=== PATIENT | male | born 1940 | race African-American/Black ===

== ENCOUNTER 2020-06-06 19:39 | Inpatient (IN) | payer OTHER ==
[2020-06-06 21:28] LABS: Basophils % 0.5 % (0-1.3); Hematocrit 32.1 % (39.6-49.0); Lymphocytes % 14.7 % (15.3-44.8); MPV 7.6 fL (7.6-11.3); RBC Red Blood Cell Count 3.34 M/uL (4.33-5.43)
[2020-06-06 21:35] LABS: Protime INR 1.28
[2020-06-06 21:51] LABS: ALT/SGPT 44 U/L (12-78); AST/SGOT 40 U/L (15-37); Albumin 3.2 g/dL (3.4-5.0); Alkaline Phosphatase 69 U/L (45-117); BUN Blood Urea Nitrogen 38 mg/dL (7-18); Bicarbonate 26 mmol/L (21-32); Bilirubin Direct < 0.1 mg/dL (0-0.2); Bilirubin Total 0.2 mg/dL (0.2-1.0); Glucose Level 165 mg/dL (74-106); Magnesium 2.1 mg/dL (1.8-2.4); NT PRO-BNP 77 pg/mL (<450); Potassium 4.7 mmol/L (3.5-5.1); Protein, Total 7.4 g/dL (6.4-8.2); Sodium Level 140 mmol/L (136-145); Troponin (Emerg Dept Use Only) < 0.02 ng/mL (0.0-0.045)
--- NOTE | 2020-06-06 23:58 | EDPHYS ---
Physician Documentation [facility] Name: Patrice Kathleen Age: 80 yrs Sex: Male : 1940 Arrival Date: 06/06/2020 Time: 19:48 Bed 18 Private MD: ED Physician Donell Calhoun HPI: 06/06 22:00 This 80 yrs old Black Male presents to ER via Ambulatory with complaints of Leg mh7 Swelling. 22:00 The patient presents with swelling. The complaints affect the right leg and left leg. mh7 Context: The problem was sustained at an unknown site, resulted from an unknown cause, the patient can fully bear weight, the patient is able to ambulate, without difficulty, Problem is a result from a previous injury: No. Onset: The symptoms/episode began/occurred 3 week(s) ago, and became worse 1 week(s) ago. Modifying factors: The symptoms are alleviated by nothing. the symptoms are aggravated by nothing. Associated signs and symptoms: Pertinent positives: swelling, Pertinent negatives calf tenderness, fever, nausea, numbness, rash, tingling, vomiting, warmth, weakness. Treatment prior to arrival includes: no previous treatment. Severity of symptoms: At their worst the symptoms were moderate, 7 day(s) ago, in the emergency department the symptoms are unchanged. Historical: - Allergies: 20:14 No Known Allergies; ca1 - PMHx: 20:14 Diabetes - IDDM; Hypertension; Hyperlipidemia; ca1 - PSHx: 20:14 prostatectomy; ca1 - Immunization history:: Client reports receiving the 2nd dose of the Covid vaccine, Client reports receiving the 1st dose of the Covid vaccine, Pneumococcal vaccine is up to date. - Social history:: Smoking status: Patient denies any tobacco usage or history of. ROS: 22:00 Constitutional: Negative for fever, chills, and weight loss, Eyes: Negative for injury, mh7 pain, redness, and discharge, ENT: Negative for injury, pain, and discharge, Neck: Negative for injury, pain, and swelling, Cardiovascular: Negative for chest pain, palpitations, and edema, Respiratory: Negative for shortness of breath, cough, wheezing, and pleuritic chest pain, Abdomen/GI: Negative for abdominal pain, nausea, vomiting, diarrhea, and constipation, Back: Negative for injury and pain, : Negative for injury, bleeding, discharge, and swelling, Neuro: Negative for headache, weakness, numbness, tingling, and seizure, Psych: Negative for depression, anxiety, suicide ideation, homicidal ideation, and hallucinations, Allergy/Immunology: Negative for hives, rash, and allergies, Endocrine: Negative for neck swelling, polydipsia, polyuria, polyphagia, and marked weight changes, Hematologic/Lymphatic: Negative for swollen nodes, abnormal bleeding, and unusual bruising. Exam: 22:00 Constitutional: This is a well developed, well nourished patient who is awake, alert, mh7 and in no acute distress. Head/Face: Normocephalic, atraumatic. Eyes: Pupils equal round and reactive to light, extra-ocular motions intact. Lids and lashes normal. Conjunctiva and sclera are non-icteric and not injected. Cornea within normal limits. Periorbital areas with no swelling, redness, or edema. Neck: Trachea midline, no thyromegaly or masses palpated, and no cervical lymphadenopathy. Supple, full range of motion without nuchal rigidity, or vertebral point tenderness. No Meningismus. Chest/axilla: Normal chest wall appearance and motion. Nontender with no deformity. No lesions are appreciated. Cardiovascular: Regular rate and rhythm with a normal S1 and S2. No gallops, murmurs, or rubs. Normal PMI, no JVD. No pulse deficits. Respiratory: Lungs have equal breath sounds bilaterally, clear to auscultation and percussion. No rales, rhonchi or wheezes noted. No increased work of breathing, no retractions or nasal flaring. Abdomen/GI: Soft, non-tender, with normal bowel sounds. No distension or tympany. No guarding or rebound. No evidence of tenderness throughout. Back: No spinal tenderness. No costovertebral tenderness. Full range of motion. 22:00 Neuro: Awake and alert, GCS 15, oriented to person, place, time, and situation. Cranial nerves II-XII grossly intact. Motor strength 5/5 in all extremities. Sensory grossly intact. Cerebellar exam normal. Normal gait. Psych: Awake, alert, with orientation to person, place and time. Behavior, mood, and affect are within normal limits. 22:00 Musculoskeletal/extremity: Extremities: noted in the right leg: swelling, noted in the left leg: erythema, swelling, ROM: intact in all extremities, Circulation is intact in all extremities. Pulses: are normal with no appreciated deficits, Perfusion: the patient is normally perfused throughout, Perfusion: the extremity is normally perfused throughout, Calf tenderness, is absent, Edema, 2+ to the left midcalf, left ankle, right midcalf and right ankle is noted, Sensation intact. Compartment Syndrome exam of affected extremity: is normal. no pain, no numbness, no tingling, no sensation deficit, no palor, no weak pulses, Joints: All joints appear normal with full range of motion. Weight bearing: able to fully bear weight, without difficulty, Tendon exam: specific tendon testing normal through active and passive range of motion DVT Exam: swelling, erythema, increased warmth, of the left leg. Vital Signs: 20:09 BP 136 / 59; Pulse 102; Resp 16 S; Temp 97.6(TE); Pulse Ox 99% on R/A; Weight 72.57 kg ca1 (R); Height 5 ft. 9 in. (175.26 cm) (R); Pain 10/10; 22:40 BP 152 / 72; Pulse 83; Resp 18; Pulse Ox 98% ; ea 06/07 01:54 BP 141 / 57; Pulse 70; Resp 18; Pulse Ox 98% on R/A; ea 06/06 20:09 Body Mass Index 23.63 (72.57 kg, 175.26 cm) ca1 MDM: 06/06 23:55 Differential diagnosis: cellulitis, DVT, peripheral edema, CHF exacerbation. Data [facility] reviewed: vital signs, nurses notes, lab test result(s), cardiac enzymes, CBC, electrolytes, EKG, radiologic studies, plain films, ultrasound. Data interpreted: Pulse oximetry: on room air is 98 %. Interpretation: normal. Counseling: I had a detailed discussion with the patient and/or guardian regarding: the historical points, exam findings, and any diagnostic results supporting the discharge/admit diagnosis, the presence of at least one elevated blood pressure reading (>120/80) during this emergency department visit, lab results, radiology results, the need for further work-up and treatment in the hospital. Response to treatment: the patient's symptoms have mildly improved after treatment. 23:58 Patient medically screened. [facility] 06/06 20:57 Order name: Basic Metabolic Panel [facility] 06/06 20:57 Order name: CBC with Diff [facility] 06/06 20:57 Order name: LFT's; Complete Time: 22:19 [facility] 06/06 20:57 Order name: Magnesium; Complete Time: 22:19 [facility] 06/06 20:57 Order name: NT PRO-BNP; Complete Time: 22:19 [facility] 06/06 20:57 Order name: PT-INR; Complete Time: 22:19 [facility] 06/06 20:57 Order name: Troponin (emerg Dept Use Only); Complete Time: 22:19 [facility] 06/06 20:57 Order name: Basic Metabolic Panel; Complete Time: 22:15 [facility] 06/06 20:57 Order name: CBC with Automated Diff; Complete Time: 22:19 [facility] 06/06 23:38 Order name: Procalcitonin 06/06 23:38 Order name: Blood Culture Adult (2) 06/06 23:38 Order name: Procalcitonin [facility] 06/06 23:38 Order name: Blood Culture [facility] 06/07 00:18 Order name: COVID-19 : Document "Date of Symptom Onset" if Symptomatic. 3 06/06 20:57 Order name: XRAY Chest (1 view) [facility] 06/06 20:57 Order name: EKG; Complete Time: 20:58 [facility] 06/06 20:57 Order name: Cardiac monitoring; Complete Time: 21:15 [facility] 06/06 20:57 Order name: EKG - Nurse/Tech; Complete Time: 21:15 [facility] 06/06 20:57 Order name: IV Saline Lock; Complete Time: 21:15 [facility] 06/06 20:57 Order name: Labs collected and sent; Complete Time: 21:15 [facility] 06/06 20:57 Order name: O2 Per Protocol; Complete Time: 21:15 [facility] 06/06 20:57 Order name: O2 Sat Monitoring; Complete Time: 21:15 [facility] 06/06 20:58 Order name: US Extremity Venous W Compression Max [facility] 06/07 01:28 Order name: SARS-COV-2 RT PCR EDMS Administered Medications: 06/07 00:12 Drug: Lasix (furosemide) 40 mg Route: IVP; Site: right antecubital; ea 01:19 Follow up: Response: No adverse reaction ea 00:12 Drug: [place] (HYDROcodone-acetaminophen) (7.5 mg-325 mg) 1 tabs Route: PO; ea 01:19 Follow up: Response: No adverse reaction ea 00:13 Drug: Cefepime 1 grams Route: IVPB; Rate: 200 ml/hr; Infused Over: 30 mins; Site: right ea antecubital; 01:00 Follow up: Response: No adverse reaction; IV Status: Completed infusion ea 01:18 Drug: vancoMYCIN 1 grams Route: IVPB; Infused Over: 2 hrs; Site: right antecubital; ea 02:07 Follow up: Response: No adverse reaction; IV Status: Infusion continued upon transfer ea Disposition: 06/06/20 23:58 Hospitalization ordered by Vernon Ash for Inpatient Admission. Preliminary diagnosis is Cellulitis, left lower extremity. - Bed requested for Telemetry/MedSurg (Inpatient). - Status is Inpatient Admission. ea - Condition is Stable. - Problem is new. - Symptoms have improved. Signatures: Dispatcher [employer] EDSC Carlito Askew, CAN FILLER-C CAN FILLER-Cla1 Genny Tanner, CHAYA RN cg Mahsa Moran RN RN Bridget Martini RN RN ca1 Donell Calhoun MD MD 7 Corrections: (The following items were deleted from the chart) 06/06 20:14 20:14 PSHx: None; ca1 ca1 06/07 00:37 00:18 CORONAVIRUS ordered. [facility] EDSC 01:51 06/06 23:58 Hospitalization Ordered by Vernon Ash MD for Inpatient Admission. Preliminary diagnosis is Cellulitis, left lower extremity. Bed requested for Telemetry/MedSurg (Inpatient). Status is Inpatient Admission. Condition is Stable. Problem is new. Symptoms have improved. mh7 06/07 02:08 01:51 06/06/2020 23:58 Hospitalization Ordered by Vernon Ash MD for Inpatient ea Admission. Preliminary diagnosis is Cellulitis, left lower extremity. Bed requested for Telemetry/MedSurg (Inpatient). Status is Inpatient Admission. Condition is Stable. Problem is new. Symptoms have improved.
--- NOTE | 2020-06-06 23:58 | ER ---
Nurse's Notes [facility] Name: Patrice Kathleen Age: 80 yrs Sex: Male : 1940 Arrival Date: 06/06/2020 Time: 19:48 Bed 18 Private MD: Diagnosis: Cellulitis, left lower extremity Presentation: 06/06 20:09 Chief complaint: Patient states: Hermilo leg swelling got worst 1 week ago. L is more ca1 swollen than R, red and more painful. Coronavirus screen: Client denies travel out of the [place] in the last 14 days. At this time, the client does not indicate any symptoms associated with coronavirus-19. Ebola Screen: Patient negative for fever greater than or equal to 101.5 degrees Fahrenheit, and additional compatible Ebola Virus Disease symptoms Patient denies exposure to infectious person. Patient denies travel to an Ebola-affected area in the 21 days before illness onset. No symptoms or risks identified at this time. Initial Sepsis Screen: Does the patient meet any 2 criteria? No. Patient's initial sepsis screen is negative. Does the patient have a suspected source of infection? No. Patient's initial sepsis screen is negative. Risk Assessment: Do you want to hurt yourself or someone else? Patient reports no desire to harm self or others. Onset of symptoms was June 06, 2020. 20:09 Method Of Arrival: Ambulatory ca1 20:09 Acuity: KAIN 3 ca1 Historical: - Allergies: 20:14 No Known Allergies; ca1 - PMHx: 20:14 Diabetes - IDDM; Hypertension; Hyperlipidemia; ca1 - PSHx: 20:14 prostatectomy; ca1 - Immunization history:: Client reports receiving the 2nd dose of the Covid vaccine, Client reports receiving the 1st dose of the Covid vaccine, Pneumococcal vaccine is up to date. - Social history:: Smoking status: Patient denies any tobacco usage or history of. Screenin:39 Abuse screen: Denies threats or abuse. Nutritional screening: No deficits noted. ea Tuberculosis screening: No symptoms or risk factors identified. Fall Risk None identified. Assessment: 20:43 General: Appears in no apparent distress. Behavior is calm, cooperative, appropriate ea for age. Pain: Denies pain. Neuro: Level of Consciousness is awake, alert, obeys commands, Oriented to person, place, time, situation. Cardiovascular: Patient's skin is warm and dry. Cardiovascular: pitting edema noted to hermilo lower extremities . Respiratory: Airway is patent Respiratory effort is even, unlabored, Respiratory pattern is regular, symmetrical. Derm: edema, redness and warmth noted to left leg. Musculoskeletal: Circulation, motion, and sensation intact. 21:50 Reassessment: Patient and/or family updated on plan of care and expected duration. Pain ea level reassessed. Patient is alert, oriented x 3, equal unlabored respirations, skin warm/dry/pink. 22:37 Reassessment: Patient and/or family updated on plan of care and expected duration. Pain ea level reassessed. Patient is alert, oriented x 3, equal unlabored respirations, skin warm/dry/pink. 06/07 00:00 Reassessment: Patient and/or family updated on plan of care and expected duration. Pain ea level reassessed. Patient is alert, oriented x 3, equal unlabored respirations, skin warm/dry/pink. 01:53 Reassessment: Patient and/or family updated on plan of care and expected duration. Pain ea level reassessed. Patient is alert, oriented x 3, equal unlabored respirations, skin warm/dry/pink. Vital Signs: 06/06 20:09 BP 136 / 59; Pulse 102; Resp 16 S; Temp 97.6(TE); Pulse Ox 99% on R/A; Weight 72.57 kg ca1 (R); Height 5 ft. 9 in. (175.26 cm) (R); Pain 10/10; 22:40 BP 152 / 72; Pulse 83; Resp 18; Pulse Ox 98% ; ea 06/07 01:54 BP 141 / 57; Pulse 70; Resp 18; Pulse Ox 98% on R/A; ea 06/06 20:09 Body Mass Index 23.63 (72.57 kg, 175.26 cm) ca1 ED Course: 06/06 19:48 Patient arrived in ED. bp1 20:12 Triage completed. ca1 20:14 Arm band placed on right wrist. ca1 20:36 Donell Calhoun MD is Attending Physician. mh7 20:39 Mahsa Moran, RN is Primary Nurse. ea 20:40 Patient has correct armband on for positive identification. Bed in low position. Call ea light in reach. Side rails up X2. 21:15 Inserted saline lock: 20 gauge in right antecubital area, using aseptic technique. ea Blood collected. 21:48 XRAY Chest (1 view) In Process Unspecified. EDMS 21:49 Note: X-RAY TECH GERALDINE, Called US at 2100 and left a message. Called again at 2119. mh1 talked to US Cyvera Shameka and notified her of exam. 22:43 Note: CALLED US TECH AGAIN TO FIND ETA. MAYBE ANOTHER 20-30 MIN (2226). [facility] 23:57 Vernon Ahs MD is Hospitalizing Provider. [facility] 06/07 00:14 US Extremity Venous W Compression Hermilo In Process Unspecified. EDMS 01:53 No provider procedures requiring assistance completed. Patient admitted, IV remains in ea place. Administered Medications: 00:12 Drug: Lasix (furosemide) 40 mg Route: IVP; Site: right antecubital; ea 01:19 Follow up: Response: No adverse reaction ea 00:12 Drug: [place] (HYDROcodone-acetaminophen) (7.5 mg-325 mg) 1 tabs Route: PO; ea 01:19 Follow up: Response: No adverse reaction ea 00:13 Drug: Cefepime 1 grams Route: IVPB; Rate: 200 ml/hr; Infused Over: 30 mins; Site: right ea antecubital; 01:00 Follow up: Response: No adverse reaction; IV Status: Completed infusion ea 01:18 Drug: vancoMYCIN 1 grams Route: IVPB; Infused Over: 2 hrs; Site: right antecubital; ea 02:07 Follow up: Response: No adverse reaction; IV Status: Infusion continued upon transfer ea Outcome: 06/06 23:58 Decision to Hospitalize by Provider. [facility] 06/07 01:53 Instructed on the need for admit, Demonstrated understanding of instructions. ea 02:06 Admitted to Med/surg accompanied by nurse, via stretcher, room 204, with chart, Report ea called to Receiving nurse on second floor 02:06 Condition: stable 02:08 Patient left the ED. ea Signatures: Dispatcher [employer] EDMS Geraldine Saenz [facility] Mahsa Moran RN RN ea Acob, Cheryl, RN RN ca1 [place]ia[place], Brittany bp1 Holmes, Maurice, MD MD [facility] Corrections: (The following items were deleted from the chart) 06/06 20:14 20:09 Pulse 102bpm; Resp 16bpm; Spontaneous; Pulse Ox 99% RA; Temp 97.6F Temporal; ca1 72.57 kg Reported; Height 5 ft. 9 in. Reported; BMI: 23.6; Pain 11/29; ca1 20:14 20:14 PSHx: None; ca1 ca1
[2020-06-07] MEDS ORDERED: HYDROCODONE/APAP 7.5/325 MG TAB ONE (00:20)
[2020-06-07] MEDS ORDERED: VANCOMYCIN 1 GM/VIAL ONE ×2 (00:20→03:55)
[2020-06-07] MEDS ORDERED: NA CHLORIDE 0.9% 250 ML ONE ×2 (00:20→04:01)
[2020-06-07] MEDS ORDERED: FUROSEMIDE 40 MG/4 ML VIAL ONE (00:20)
[2020-06-07] MEDS ORDERED: CEFEPIME/SWI 1gm 10 ML ONE (00:21)
--- NOTE | 2020-06-07 00:59 | P.HP ---
Certification for Inpatient Patient admitted to: Inpatient With expected LOS: >2 Midnights Patient will require the following post-hospital care: None Practitioner: I am a practitioner with admitting privileges, knowledge of patient current condition, hospital course, and medical plan of care. Services: Services provided to patient in accordance with Admission requirements found in Title 42 Section 412.3 of the Code of Federal Regulations <Carlito Askew - Last Filed: 06/07/20 00:53> Patient History Date of Service: 06/07/20 Primary Care Provider: [place] Reason for admission: CHF exacerbation, LLE cellulitis History of Present Illness: 80-year-old male with history of hypertension, hyperlipidemia, diabetes mellitus type 2, CHF presents emergency department for lower extremity edema, worse on the left with redness/pain to the left lower extremity. Patient was evaluated in the emergency department, left lower extremity negative for DVT, labs significant for white blood cell count 6.5 hemoglobin 11, hematocrit 32.1 creatinine 1.58, GFR 52, BUN 38 glucose 165. Patient does report that in the past he has been told he has some underlying renal dysfunction but unaware why his baseline kidney function is. Pro calcitonin elevated 4.0. Patient also reports that he had a recent echocardiogram just earlier this month at the [place], unaware of what the results were from this. Patient with significant 3+ pitting edema bilateral lower extremities and significant amount of erythema, edema, pain to the left lower extremity. ED provider wishes to admit for CHF exacerbation, cellulitis of the left lower extremity. - Past Medical/Surgical History -: Hypertension -: Hyperlipidemia -: Diabetes mellitus type 2 -: CHF-unknown EF -: History of prostate cancer 2010 -: Prostatectomy Psychosocial/ Personal History: Patient is retired, lives at home with his family - Family History Father -: Cancer Mother -: Cancer Brother -: Cancer Sister -: Cancer - Social History Smoking Status: Never smoker Alcohol use: No CD- Drugs: No Caffeine use: Yes <Carlito Askew - Last Filed: 06/07/20 00:53> Date of Service: 06/14/20 <Vernon Ash - Last Filed: 06/14/20 21:41> Review of Systems 10-point ROS is otherwise unremarkable Respiratory: Shortness of Breath Cardiovascular: Edema Musculoskeletal: Leg Pain Integumentary: Rash, As per HPI <Attema,Carlito - Last Filed: 06/07/20 00:53> Physical Examination - Physical Exam General: Alert, In no apparent distress HEENT: Atraumatic, PERRLA, Mucous membr. moist/pink Neck: Supple, 2+ carotid pulse no bruit, No LAD Respiratory: Normal air movement, Crackles/rales (Bi basilar) Cardiovascular: Regular rate/rhythm, Normal S1 S2, Edema (3+ pitting edema bilateral lower extremities to the level of the carroll) Gastrointestinal: Normal bowel sounds, No tenderness Musculoskeletal: Erythema (Left lower extremity), Tenderness, Warmth Integumentary: No rashes Neurological: Normal speech, Normal strength at 5/5 x4 extr, Normal tone, Normal affect - Studies Laboratory Data (last 24 hrs) 06/06/20 21:09: PT 14.7 H, INR 1.28 06/06/20 21:09: WBC 6.50, Hgb 11.0 L, Hct 32.1 L, Plt Count 155 06/06/20 21:09: Sodium 140, Potassium 4.7, BUN 38 H, Creatinine 1.58 H, Glucose 165 H, Magnesium 2.1, Total Bilirubin 0.2, AST 40 H, ALT 44, Alkaline Phosphatase 69 <Carlito Askew - Last Filed: 06/07/20 00:53> Assessment and Plan - Plan Assessment Acute on chronic congestive heart failure-unknown EF with hypervolemia Cellulitis left lower extremity Renal insufficiency Diabetes mellitus type 2 Hypertension, hyperlipidemia Plan Acute on chronic congestive heart failure-unknown EF with hypervolemia: Patient had recent echocardiogram at the [place] earlier this month, will attempt to obtain results from this. Continue with Lasix IV 40 mg b.i.d., daily weights, 1500 cc per day fluid restriction. Cardiology consult in place, monitor on telemetry. May need to adjust patient's home medications. DVT prophylaxis Lovenox 40 mg subcutaneous once daily. Cellulitis left lower extremity: Significant cellulitis left lower extremity elevated pro calcitonin. Continue with vancomycin/cefepime at this time, blood cultures obtained. Renal insufficiency: Unaware patient's baseline renal function, will obtain renal ultrasound, nephrology as patient will be receiving Lasix for hypervolemia and antibiotics. Diabetes mellitus type 2: A.c. HS Accu-Cheks scale insulin therapy. Patient reports recent A1c with level of 7.2. Hypertension, hyperlipidemia: Continue home medications, adjust as necessary. Discharge Plan: Home Plan to discharge in: Greater than 2 days - Advance Directives Does patient have a Living Will: No Does patient have a Durable POA for Healthcare: No - Code Status/Comfort Care Code Status Assessed: Yes (Full code) Critical Care: No Time Spent Managing Pts Care (In Minutes): 55 <Carlito Askew - Last Filed: 06/07/20 00:53> - Plan Plan of care reviewed as noted above by Carlito Askew. acute on chronic CHF; LLE Celluitis IV lasix, IV Antibiotics <Vernon Ash - Last Filed: 06/14/20 21:41>
[2020-06-07 02:52] VITALS: BMI 37.0
[2020-06-07] MEDS ORDERED: VANCOMYCIN/NS 1 gm 1 GM/250 ML BAG IVPB SCH (03:13)
[2020-06-07] MEDS ORDERED: ACETAMINOPHEN 500 MG TAB PO PRN (03:13)
[2020-06-07] MEDS ORDERED: ONDANSETRON 4 MG/2 ML VIAL IV PRN (03:13)
[2020-06-07] MEDS ORDERED: VANCOMYCIN/NS 1 gm 1 GM/250 ML BAG IVPB ONE (03:30)
[2020-06-07] MEDS ORDERED: D50W 25 GM/50 ML SYRINGE IV PRN (04:49)
[2020-06-07] MEDS ORDERED: GLUCAGON 1 MG/VIAL IM PRN (04:49)
[2020-06-07] MEDS ORDERED: LIDOCAINE 4% PATCH TOP PRN (05:00)
[2020-06-07 06:34] LABS: Absolute Lymphocytes (CBC) 1.4 K/uL (0.7-4.9); Basophils % 0.9 % (0-1.3); Hematocrit 31.3 % (39.6-49.0); Lymphocytes % 20.8 % (15.3-44.8); MPV 8.3 fL (7.6-11.3); RBC Red Blood Cell Count 3.26 M/uL (4.33-5.43)
[2020-06-07 07:12] LABS: Albumin 3.2 g/dL (3.4-5.0); Bilirubin Total 0.3 mg/dL (0.2-1.0); Magnesium 2.1 mg/dL (1.8-2.4); Protein, Total 7.2 g/dL (6.4-8.2); Uric Acid 7.3 mg/dL (3.5-7.2)
[2020-06-07 07:14] LABS: Thyroid Stimulating Hormone 5.25 uIU/mL (0.360-3.740)
[2020-06-07] MEDS: INSULIN -REGULAR HUMAN 50 UNIT/0.5 ML ML SQ SCH ×4 (07:30→20:40)
[2020-06-07 07:31] LABS: Blood Morphology Comment NOT SEEN (NOT SEEN); Platelet Estimate ADEQ; Platelets, Giant NOTED
[2020-06-07] MEDS ORDERED: D50W 25 GM/50 ML VIAL IV PRN (08:00)
[2020-06-07] MEDS: ENOXAPARIN 40 MG/0.4 ML SQ SCH (08:37)
[2020-06-07] MEDS: INSULIN GLARGINE 100 UNITS/ML SQ SCH ×2 (08:38→20:40)
[2020-06-07] MEDS: FUROSEMIDE 40 MG/4 ML VIAL IV SCH ×2 (08:38→16:58)
[2020-06-07] MEDS: lisinopriL 10 MG TAB PO SCH (08:38)
[2020-06-07] MEDS: CARBOXYMETHYLCELLULOSE SODIUM OPTH SCH (09:00)
[2020-06-07] MEDS: HOME MED 1 EA UNK (Latanoprost/Pf [Latanoprost 0.005% Eye Drop] 7.5 ML Drops) OPTH SCH ×2 (09:00→20:40)
[2020-06-07] MEDS ORDERED: CEFEPIME/SWI 1gm 10 ML IV SCH (09:00)
[2020-06-07] MEDS ORDERED: CEFEPIME 1 GM/VIAL IV SCH (09:00)
[2020-06-07] MEDS: HOME MED 1 EA UNK (Brimonidine Tartrate [Lumify] 2.5 ML Drops) OPTH SCH ×2 (09:00→20:39)
[2020-06-07] MEDS: CEFEPIME/SWI 1gm 10 ML IVP SCH (10:10)
--- NOTE | 2020-06-07 11:30 | RAD REPORT ---
EXAM DESCRIPTION: USExtrem Venous W Compress Bil06/07/2020 12:01 am CLINICAL HISTORY: Leg swelling COMPARISON: none FINDINGS: The common femoral, superficial femoral, popliteal and posterior tibial veins bilaterally are compressible and demonstrate augmentation. Doppler demonstrates good flow. IMPRESSION: No evidence of deep venous thrombosis involving either lower extremity.
--- NOTE | 2020-06-07 14:54 | P.PN ---
Subjective Date of Service: 06/07/20 Primary Care Provider: [place] Chief Complaint: CHF exacerbation, LLE cellulitis Subjective: Improving (Breathing comfortably on room air, feels bilateral lower extremities edema slightly better. Left lower extremity slightly less tender) Review of Systems 10-point ROS is otherwise unremarkable Physical Examination - Vital Signs Temperature: 97.7 F Blood Pressure: 132/67 Pulse: 69 Respirations: 18 Pulse Ox (%): 99 - Studies Laboratory Data (last 24 hrs) 06/06/20 21:09: PT 14.7 H, INR 1.28 06/06/20 21:09: WBC 6.50, Hgb 11.0 L, Hct 32.1 L, Plt Count 155 06/06/20 21:09: Sodium 140, Potassium 4.7, BUN 38 H, Creatinine 1.58 H, Glucose 165 H, Magnesium 2.1, Total Bilirubin 0.2, AST 40 H, ALT 44, Alkaline Phosphatase 69 Assessment & Plan Physician Review Additional Text: Physical Exam General: Alert, In no apparent distress HEENT: Sclera anictericSclera anicteric, moist mucous membranes Respiratory: Mild bibasilar crackles, mildly labored respirations on room air at rest Cardiovascular: Regular rate/rhythm, Normal S1 S2 Gastrointestinal: Soft, mildly distended, nontender EXT: 2-3+ pitting edema, LLE: erythematous, tender, warm Neurological: Normal speech, Normal strength at 5/5 x4 extr, Normal affect Problem list Acute on chronic congestive heart failure-unknown EF with hypervolemia Cellulitis left lower extremity acute on chronic renal insufficiency Diabetes mellitus type 2 Hypertension, hyperlipidemia -reports recent echo and CT abd done at [place] earlier this month - attempting to obtain these results -continue IV 40mg lasix BID -cardiology consulted given no h/o CHF per patient -LLE cellulitis improved slightly, continue IV antibiotics, f/u blood cultures -Unknown baseline renal function, renal ultrasound ordered, nephrology consulted; review of EMR reveals better function in the past -continue sliding scale insulin, accu-cheks -continue home medications as appropriate VTE: lovenox Code: fulld Dispo: anticipate dc home in ~24-48hrs Time Spent Managing Pts Care (In Minutes): 35
[2020-06-07 15:12] LABS: Urine Appearance CLEAR (Clear); Urine Bilirubin NEGATIVE (Negative); Urine Blood NEGATIVE (Negative); Urine Color YELLOW (Yellow); Urine Glucose 3+ (Negative); Urine Protein NEGATIVE (Negative); Urine Specific Gravity 1.015 (1.005-1.030); Urine Urobilinogen 0.2 mg/dL (0.2-1.0); Urine pH 6.5 (5.0-7.0)
--- NOTE | 2020-06-07 15:41 | CON ---
Date of Consultation: 06/07/2020 Reason For Consultation: Acute renal failure. History Of Present Illness: Mr. Kathleen is a very pleasant 80-year-old gentleman with history of hypertension, hyperlipidemia, type 2 diabetes for over 20 years, and congestive heart rolyraeann ramirezalyssia, who gets most of his care at the [place] and follows up with the [place] doctor, presented to the Emergen cy Room at [facility] with lower extremity edema which was getting worse on t he left side with some erythema and pain. He states that he has been on "fluid pills" for a long mika e, but the fluid pills were not bringing the swelling down and was getting worse and hence he decided to come to the emergency room. 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 He reports good diabetes control and reports good compliance with medicatio ns; however, he is reporting some noncompliance with low-sodium diet. Past Medical History: Significant for history of hypertension, hyperlipidemia, type 2 diabetes, CHF with unknown EF, history of prostate cancer in 2010, prostatectomy. Social History: The patient lives at home with his family. Family History: Significant for history of cancer in his parents. He denies any history of smoking, alcohol use. Review of Systems: Positive for pain and swelling in the left lower extremity. Denies any shortness of breath. Denies any chest pain. Denies any abdominal pain. Denies any nausea, vomiting. He reports NSAID use in past, but none currently. Physical Examination: Vital Signs: At this time are showing temperature of 97.7, pulse rate of 69, respiratory rate of 18, and blood pressure 132/67. General: He appears in no acute distress. HEENT: Atraumatic head. Lungs: Clear to auscultation with diminished breath sounds at bases. No JVD was noted. Heart: Auscultation of the heart revealed regular rate and rhythm. Abdomen: Obese and nontender. Extremities: Showed bilateral lower extremity edema, worse on the left lower extremity with some jae thema also. He was noted to have some toenail fungus bilaterally in both feet. Neurologic: He is alert, awake, and oriented x3. No focal motor neurological deficits noted. Laboratory Data: At this time are showing sodium of 139, potassium of 4, chloride of 107, BUN of 32, and creatinine of 1.32. Albumin was 3.2. TSH was 5.2. CBC showing stable hemoglobin, hematocrit, and platelet count. No leukocytosis was noted. Current Medications: Include cefepime 1 g daily, Lasix 40 mg IV b.i.d., Lovenox for DVT prophylaxis, insulin, lisinopril 10 mg a day, vancomycin. Impression: 1.Left lower extremity cellulitis, currently on broad-spectrum antibiotics with vancomycin and cefep rancho. Continue to monitor closely. Antibiotics need to be dose adjusted for renal function and vanc trough needs to be monitored. 2.Acute on chronic renal insufficiency. Creatinine has improved from 1.5 down to 1.3. Baseline eren al function is unknown at this time. We will request a renal ultrasound for further evaluation and m onitor closely. 3.Type 2 diabetes. Continue insulin and monitor. 4.Hypertension. The patient is on lisinopril low dose. We will continue the same and avoid further hypotension and nephrotoxins. Plan: The patient is overall doing okay at this time. Continue all medications and plan of care. R enal function is improving slightly. We will follow up closely and monitor. VV/MODL Voice ID: [id number] Report ID: [id number]
[2020-06-07 16:12] LABS: Urine Microscopic Reflex NO UMIC
--- NOTE | 2020-06-07 17:38 | CON ---
Date of Consultation: 06/07/2020 Reason For Consultation: Questionable congestive heart failure. History Of Present Illness: A 80-year-old male with history of hypertension, dyslipidemia, diabetes, CHF, presented with worsening edema of both lower extremities, left more than the right. Was evalua blanca in the emergency room for DVT, which was negative; however, the man has significant erythema and redness involving that lower extremity. Denies having shortness of breath or chest pain and he has m ore than 3+ pedal edema. Past Medical History: As outlined above in HPI. Medications: Refer to reconciliation sheet for detailed list. Allergies: SULFA AND TRIMETHOPRIM. Family History: No premature coronary artery disease. Social History: Does not smoke or drink. Does not use any drugs. Review of Systems: All systems reviewed and they were negative except what is mentioned in the HPI. Physical Examination: Vital Signs: Temperature is 97.7, pulse 69, breathing at 18, blood pressure is 132/69, saturating 99 %. General: Pleasant elderly male, in no distress. Head and Neck: Pupils are equal, reactive to light. Intact eye movements. No JVD. No cervical lym phadenopathy. Neck: Supple. Thyroid is not enlarged. Lungs: Clear to auscultation bilaterally. No rhonchi, rales, or crackles. No accessory muscle use. Heart: Regular rate and rhythm. No extra sounds. Abdomen: Soft, nontender. Bowel sounds positive. No organomegaly. No masses or hernia. No rigidi ty or rebound. Extremities: Edema bilaterally more than 3, worse on the left with erythema involving the left lower extremity suggestive of cellulitis. Neurologic: Alert, awake, oriented x3. No acute focal deficits appreciated. Lymph Nodes: No cervical or axillary lymphadenopathy. Investigations: Venous Doppler of lower extremities negative for DVT. Troponin is negative less rachel n 0.02. TSH is 5. Creatinine is 1.58, then 1.32. Assessment And Recommendations: 1.Bilateral lower extremity edema, possible congestive heart failure exacerbation. His heart functi on is unknown. Obtain an echocardiogram and agree with IV Lasix. Carefully monitor BUN, creatinine, and electrolytes. The patient definitely will benefit from at least one more day of IV diuretics an d then switch to oral forms. 2.Cellulitis of left lower extremity, being managed with antibiotics by the hospitalist. Thank you for the consult. /MODL Voice ID: [id number] Report ID: [id number]
--- NOTE | 2020-06-07 20:35 | RAD REPORT ---
EXAM DESCRIPTION: US - Renal Ultrasound-Complete - 06/07/2020 8:22 pm CLINICAL HISTORY: Acute renal insufficiency COMPARISON: None FINDINGS: The right kidney measures cm with a normal echotexture. The left kidney measures cm with a normal echotexture. A 2.4 centimeter hypoechoic mass. Couple small er cysts Hydronephrosis is not seen. The bladder is distended. IMPRESSION: 2.4 centimeter hypoechoic mass left kidney probably a benign complex cyst. Follow up ult rasound in 3 months recommended to assess stability Bladder distention
[2020-06-08] MEDS: HYDROCODONE/APAP 7.5/325 MG TAB PO PRN ×2 (00:50→21:40)
[2020-06-08] MEDS: VANCOMYCIN 2 GM in NA CHLORIDE 0.9% 500 ML IVPB SCH (03:23)
[2020-06-08 05:48] LABS: Absolute Lymphocytes (CBC) 1.4 K/uL (0.7-4.9); Basophils % 0.6 % (0-1.3); Hematocrit 34.1 % (39.6-49.0); Lymphocytes % 24.5 % (15.3-44.8); MPV 7.9 fL (7.6-11.3); RBC Red Blood Cell Count 3.53 M/uL (4.33-5.43)
[2020-06-08 06:01] LABS: Bilirubin Total 0.4 mg/dL (0.2-1.0); Potassium 4.2 mmol/L (3.5-5.1); Protein, Total 7.2 g/dL (6.4-8.2)
[2020-06-08] MEDS: INSULIN -REGULAR HUMAN 50 UNIT/0.5 ML ML SQ SCH ×4 (07:30→21:40)
[2020-06-08] MEDS: lisinopriL 10 MG TAB PO SCH (08:52)
[2020-06-08] MEDS: METFORMIN HCL 500 MG TAB PO SCH (08:52)
[2020-06-08] MEDS: ENOXAPARIN 40 MG/0.4 ML SQ SCH (08:52)
[2020-06-08] MEDS: FUROSEMIDE 40 MG/4 ML VIAL IV SCH ×2 (08:52→17:24)
[2020-06-08] MEDS: INSULIN GLARGINE 100 UNITS/ML SQ SCH ×2 (08:53→21:39)
[2020-06-08] MEDS: HOME MED 1 EA UNK (Brimonidine Tartrate [Lumify] 2.5 ML Drops) OPTH SCH ×2 (09:00→21:00)
[2020-06-08] MEDS: HOME MED 1 EA UNK (Latanoprost/Pf [Latanoprost 0.005% Eye Drop] 7.5 ML Drops) OPTH SCH ×2 (09:00→21:00)
[2020-06-08] MEDS: CARBOXYMETHYLCELLULOSE SODIUM OPTH SCH (09:00)
[2020-06-08] MEDS: CEFEPIME/SWI 1gm 10 ML IVP SCH (10:38)
--- NOTE | 2020-06-08 12:11 | RAD REPORT ---
EXAM DESCRIPTION: Dominic Single View06/06/2020 9:48 pm CLINICAL HISTORY: 80 years, Male, SWELLING COMPARISON: None. FINDINGS: Single view of the chest was obtained portable. No prior films are available for compariso n. The cardiomediastinal silhouette demonstrate to be unremarkable. The heart is not enlarged. The thoracic aorta is unremarkable. Costophrenic angles are sharp. No areas of consolidation or masses are seen. External EKG leads within the [id number] limits diagnosis. The rest of the soft tissue a nd bony structures demonstrate to be unremarkable. IMPRESSION: NO ACUTE CARDIOPULMONARY DISEASE SEEN. Electronically signed by: Zay Mike MD 06/06/2020 10:46 PM CDT Due to temporary technical issues with the PACS/Fluency reporting system, reports are being signed by the in house radiologist without review as a courtesy to ensure prompt reporting. The interpreting r adiologist is fully responsible for the content of the report.
--- NOTE | 2020-06-08 12:24 | P.PN ---
Subjective Date of Service: 06/08/20 Primary Care Provider: SHAHNAZ Chief Complaint: CHF exacerbation, LLE cellulitis Subjective: Improving (continues with LLE erythema and swelling, slightly improved. denies n/v/d, no abdominal pain) Review of Systems 10-point ROS is otherwise unremarkable Physical Examination - Vital Signs Temperature: 97.5 F Blood Pressure: 135/64 Pulse: 66 Respirations: 18 Pulse Ox (%): 100 Assessment & Plan Physician Review Additional Text: Physical Exam General: Alert, NAD HEENT: Sclera anicteric, normal conjunctiva, moist mucous membranes Respiratory: clear to auscultation bilaterally, nonlabored on RA Cardiovascular: Regular rate/rhythm, Normal S1 S2 Gastrointestinal: Soft, mildly distended, nontender EXT: 2+ pitting edema, LLE: erythematous from ankle to knee, mild tenderness, wa rm Neurological: Normal speech, Normal strength at 5/5 x4 extr, Normal affect Problem list Acute on chronic congestive heart failure-unknown EF with hypervolemia Cellulitis left lower extremity acute renal insufficiency, likely cardiorenal syndrome Diabetes mellitus type 2 Hypertension, hyperlipidemia -reports recent echo and CT abd done at [facility] earlier this month - have been unable to obtain results -echo ordered for today, cardiology consulted given no h/o CHF per patient -continue IV 40mg lasix BID -LLE cellulitis improving, continue IV antibiotics, blood culture no growth so far -Unknown baseline renal function, renal function improving with diuresis; nephrology following -continue sliding scale insulin, accu-cheks -continue home medications VTE: lovenox Code: full Dispo: anticipate dc home in ~24hrs Time Spent Managing Pts Care (In Minutes): 35
[2020-06-08] MEDS ORDERED: VANCOMYCIN 2 GM in NA CHLORIDE 0.9% 500 ML IVPB SCH (16:00)
--- NOTE | 2020-06-08 18:53 | P.PN ---
Date of Service: 06/08/20 Vital Signs Temp Pulse Resp BP Pulse Ox 97.2 F 66 18 151/71 H 98 06/08/20 16:00 06/08/20 16:00 06/08/20 16:00 06/08/20 16:00 06/08/20 16:00 Medications Acetaminophen (Acetaminophen 500 Mg Tab) 500 mg PO Q4HP PRN PRN Reason: TEMP > 100' F Hydrocodone Bitart/Acetaminophen (Hydrocodone/Apap 7.5/325 Mg Tab) 1 tab PO Q6H PRN PRN Reason: Pain scale 5-7 (Moderate) Last Admin: 06/08/20 00:50 Dose: 1 tab Documented by: Dextrose (D50w 25 Gm/50 Ml Vial) 12.5 gm IV PRN PRN; Protocol PRN Reason: HYPOGLYCEMIA Enoxaparin Sodium (Enoxaparin 40 Mg/0.4 Ml) 40 mg SQ DAILY [facility] Last Admin: 06/08/20 08:52 Dose: 40 mg Documented by: Furosemide (Furosemide 40 Mg/4 Ml Vial) 40 mg IV BIDL [facility] Last Admin: 06/08/20 17:24 Dose: 40 mg Documented by: Glucagon (Glucagon 1 Mg/Vial) 1 mg IM 1X PRN; Protocol PRN Reason: HYPOGLYCEMIA Home Med (Brimonidine Tartrate [Lumify]) 2.5 ml OPTH BID [facility] Last Admin: 06/08/20 09:00 Dose: Not Given Documented by: Home Med (Carboxymethylcellulose Sodium [Lubricant Eye Drops]) 1 each OPTH DAILY [facility] Last Admin: 06/08/20 09:00 Dose: Not Given Documented by: Home Med (Latanoprost/Pf [Latanoprost 0.005% Eye Drop]) 1 drop OPTH BID [facility] Last Admin: 06/08/20 09:00 Dose: Not Given Documented by: Cefepime HCl (Maxipime 1 Gm/10 Ml Ivp) 10 mls @ 200 mls/hr IVP DAILY [facility] Last Admin: 06/08/20 10:38 Dose: 10 mls Documented by: Vancomycin HCl 2 gm/ Sodium (Chloride) 500 mls @ 250 mls/hr IVPB Q24H [facility] Last Admin: 06/08/20 03:23 Dose: 500 mls Documented by: Insulin Glargine (Insulin Glargine 100 Units/Ml) 16 units SQ BID [facility] Last Admin: 06/08/20 08:53 Dose: 16 units Documented by: Insulin Human Regular (Insulin -Regular Human 50 Unit/0.5 Ml Ml) 0 unit SQ [facility]; Protocol Last Admin: 06/08/20 17:24 Dose: 6 unit Documented by: Lidocaine (Lidocaine 4% Patch) 1 patch TOP DAILYPRN PRN PRN Reason: Pain scale 2-4 (Mild) Lisinopril (Lisinopril 10 Mg Tab) 10 mg PO DAILY [facility] Last Admin: 06/08/20 08:52 Dose: 10 mg Documented by: Metformin HCl (Metformin Hcl 500 Mg Tab) 500 mg PO DAILY [facility] Last Admin: 06/08/20 08:52 Dose: 500 mg Documented by: Ondansetron HCl (Ondansetron 4 Mg/2 Ml Vial) 4 mg IV Q6HP PRN PRN Reason: NAUSEA / VOMITING Sodium Chloride (Flush Normal Saline 10 Ml) 10 ml IV BID [facility] Last Admin: 06/08/20 08:53 Dose: 10 ml Documented by: Microbiology Results 06/07/20 00:50 Blood - Blood Aerobic Blood Culture - Preliminary No growth in 24 hours. 06/07/20 00:50 Blood - Blood Anaerobic Blood Culture - Preliminary No growth in 24 hours. 06/07/20 00:54 Blood - Blood Aerobic Blood Culture - Preliminary No growth in 24 hours. 06/07/20 00:54 Blood - Blood Anaerobic Blood Culture - Preliminary No growth in 24 hours. Assessment/ Plan: Nephrology No acute cardiac or pulmonary complaints. No CP or SOB. Feeling better with improved edema. No acute events overnight. Vitals, medications, blood work and imaging reviewed in the chart. NAD. MMM. Neck supple. CTA. RRR. Soft Abd. No C/C/E. No rash. AAO. Normal Speech. EXAM DESCRIPTION: US - Renal Ultrasound-Complete - 06/07/2020 8:22 pm CLINICAL HISTORY: Acute renal insufficiency COMPARISON: None FINDINGS: The right kidney measures cm with a normal echotexture. The left kidney measures cm with a normal echotexture. A 2.4 centimeter hypoechoic mass. Couple smaller cysts Hydronephrosis is not seen. The bladder is distended. IMPRESSION: 2.4 centimeter hypoechoic mass left kidney probably a benign complex cyst. Follow up ultrasound in 3 months recommended to assess stability A/P: Continue the current POC and Medications other than the changes listed. AM Labs PRN. Recommend daily weight. Please see the orders for complete details. DEBI likely CRS CKD III -No NSAIDs -Continue Lasix Left renal mass 2.4cm likely benign cyst -Obtain previous CT scan Hypocalcemia -Start Vitamin D3 HTN with CKD/ CHF -Continue Lisinopril Diastolic CHF, A/C -Continue Lasix IV BID DM II with CKD -Continue Lantus -Continue Metformin Anemia in chronic illness -Monitor H&H LLE Cellulitis -Continue Cefepime and Vancomycin -Monitor Vanco level
[2020-06-09 03:10] VITALS: O2SAT 98
[2020-06-09 03:17] LABS: Albumin 3.3 g/dL (3.4-5.0); Phosphorus 3.3 mg/dL (2.5-4.9); Potassium 4.3 mmol/L (3.5-5.1)
[2020-06-09] MEDS: VANCOMYCIN 2 GM in NA CHLORIDE 0.9% 500 ML IVPB SCH (03:29)
[2020-06-09] MEDS: INSULIN -REGULAR HUMAN 50 UNIT/0.5 ML ML SQ SCH ×2 (07:30→11:30)
[2020-06-09] MEDS: METFORMIN HCL 500 MG TAB PO SCH (08:24)
[2020-06-09] MEDS: INSULIN GLARGINE 100 UNITS/ML SQ SCH (08:24)
[2020-06-09] MEDS: lisinopriL 10 MG TAB PO SCH (08:24)
[2020-06-09] MEDS: FUROSEMIDE 40 MG/4 ML VIAL IV SCH (08:25)
[2020-06-09] MEDS: ENOXAPARIN 40 MG/0.4 ML SQ SCH (08:25)
[2020-06-09] MEDS: CARBOXYMETHYLCELLULOSE SODIUM OPTH SCH (08:29)
[2020-06-09] MEDS: HOME MED 1 EA UNK (Latanoprost/Pf [Latanoprost 0.005% Eye Drop] 7.5 ML Drops) OPTH SCH (08:30)
[2020-06-09] MEDS: HOME MED 1 EA UNK (Brimonidine Tartrate [Lumify] 2.5 ML Drops) OPTH SCH (08:30)
[2020-06-09] MEDS: CEFEPIME/SWI 1gm 10 ML IVP SCH (09:13)
--- NOTE | 2020-06-09 12:27 | ECHO ---
HEIGHT: 5 ft 9 in WEIGHT: 243 lb 0 oz DATE OF STUDY: 06/09/[address]: Vernon Ash MD 2-DIMENSIONAL: YES M.MODE: YES DOPPLER: YES COLOR FLOW: YES TDS: PORTABLE: DEFINITY: BUBBLE STUDY: DIAGNOSIS: EVALUATE FFUNCTION, CONGESTIVE HEART FAILURE CARDIAC HISTORY: CATHERIZATION: NO SURGERY: NO PROSTHETIC VALVE: NO PACEMAKER: NO MEASUREMENTS (cm) DIASTOLIC (NORMALS) SYSTOLIC (NORMALS) IVSd 1.1 (0.6-1.2) LA Diam 5.4 (1.9-4.0) LVEF 66% LVIDd 3.8 (3.5-5.7) LVIDs 2.4 (2.0-3.5) %FS 35% LVPWd 1.2 (0.6-1.2) Ao Diam 2.7 (2.0-3.7) 2 DIMENSIONAL ASSESSMENT: RIGHT ATRIUM: NORMAL LEFT ATRIUM: NORMAL RIGHT VENTRICLE: NORMAL LEFT VENTRICLE: NORMAL TRICUSPID VALVE: NORMAL MITRAL VALVE: NORMAL PULMONIC VALVE: NORMAL AORTIC VALVE: NORMAL PERICARDIAL EFFUSION: NONE AORTIC ROOT: NORMAL LEFT VENTRICULAR WALL MOTION: NORMAL EJECTION FRACTION DOPPLER/COLOR FLOW: NORMAL COMMENTS: DECREASED LEFT VENTRICULAR COMPLIANCE. NORMAL EJECTION FRACTION. NO EFFUSION. TECHNOLOGIST: ADILIA SHEFFIELD
--- NOTE | 2020-06-09 13:24 | P.DS ---
Admission Date: 06/07/20 Discharge Date: 06/09/20 Primary Care Provider: [place] Disposition: ROUTINE DISCHARGE Discharge Condition: FAIR Reason for Admission: CHF exacerbation, LLE cellulitis Consultations: Cardiology-Dr. Cody Nephrology-Dr. Graves. - Problems (1) Acute diastolic heart failure Current Visit: Yes Status: Acute (2) Left leg cellulitis Current Visit: Yes Status: Acute (3) Lymphedema of both lower extremities Current Visit: Yes Status: Acute (4) DM type 2 (diabetes mellitus, type 2) Current Visit: Yes Status: Acute Brief History of Present Illness: 80-year-old gentleman who utilizes [facility] presented to the emergency department with a complaint of increased bilateral lower extremity swelling, worse on the left, left lower extremity pain and redness. Workup in the emergency department was significant for elevated pro calcitonin, normal leukocytes. Venous Doppler of the lower extremity was done which was negative for acute DVT. There is a concern for cellulitis of the lower extremity and CHF exacerbation. Patient was admitted for further management. Hospital Course: Patient admitted to the medical floor and treated with IV Lasix for diuresis, and IV antibiotics-cefepime and vancomycin. Echocardiogram was done which reported normal EF, no significant valvular abnormality. Patient was seen and evaluated by cardiology and nephrology. His serum creatinine increased slightly with the IV Lasix but this improved later on during the course of his treatment. Patient has improved clinically. He is discharged with the increase in his maintenance Lasix 40 mg b.i.d. he is prescribed Augmentin to continue treatment for possible cellulitis of the left lower extremity. He will follow with Renal- Dr. Graves within a couple of weeks. Vital Signs/Physical Exam: Temp Pulse Resp BP Pulse Ox 98.4 F 75 138 H 138/62 96 06/09/20 08:00 06/09/20 08:25 06/09/20 08:00 06/09/20 08:25 06/09/20 08:00 General: Alert, In no apparent distress, Oriented x3 HEENT: Mucous membr. moist/pink Neck: Supple, JVD not distended Respiratory: Clear to auscultation bilaterally, Normal air movement Cardiovascular: Regular rate/rhythm, Normal S1 S2, Edema (Bilateral lower extremities, worse on the left.) Gastrointestinal: Soft and benign, Non-distended, No tenderness Musculoskeletal: Swelling (Bilateral lower extremity), Erythema (Erythema improved on the left lower extremity.) Neurological: Normal gait, Normal strength at 5/5 x4 extr, Cranial nerves 3-12 intact Laboratory Data at Discharge: WBC 5.90 K/uL (4.3-10.9) 06/08/20 05:17 Hgb 11.2 g/dL (13.6-17.9) L 06/08/20 05:17 Hct 34.1 % (39.6-49.0) L 06/08/20 05:17 Plt Count 183 K/uL (152-406) 06/08/20 05:17 PT 14.7 SECONDS (9.5-12.5) H 06/06/20 21:09 INR 1.28 06/06/20 21:09 Sodium 144 mmol/L (136-145) 06/09/20 02:50 Potassium 4.3 mmol/L (3.5-5.1) 06/09/20 02:50 BUN 26 mg/dL (7-18) H 06/09/20 02:50 Creatinine 1.34 mg/dL (0.55-1.3) H 06/09/20 02:50 Glucose 159 mg/dL (74-106) H 06/09/20 02:50 Uric Acid 7.3 mg/dL (3.5-7.2) H 06/07/20 05:18 Phosphorus 3.3 mg/dL (2.5-4.9) 06/09/20 02:50 Magnesium 2.0 mg/dL (1.8-2.4) 06/08/20 05:17 Total Bilirubin 0.4 mg/dL (0.2-1.0) 06/08/20 05:17 AST 22 U/L (15-37) 06/08/20 05:17 ALT 40 U/L (12-78) 06/08/20 05:17 Alkaline Phosphatase 56 U/L (45-117) 06/08/20 05:17 Triglycerides 55 mg/dL (<150) 06/07/20 05:18 Cholesterol 85 mg/dL (<200) 06/07/20 05:18 HDL Cholesterol 40 mg/dL (40-60) 06/07/20 05:18 Cholesterol/HDL Ratio 2.13 06/07/20 05:18 Home Medications: Acetaminophen 325 mg PO PRN 06/07/20 Brimonidine Tartrate [Lumify] 2.5 ml OP BID 06/07/20 Carboxymethylcellulose Sodium [Lubricant Eye Drops] 1 each OP DAILY 06/07/20 Diclofenac Sodium [Diclo Gel] 1 each TP PRN 06/07/20 Insulin Aspart [Insulin Aspart Flexpen] See Protocol SQ TID 06/07/20 Insulin Glargine Human [Lantus*] 16 units SQ BID 06/07/20 Latanoprost/Pf [Latanoprost 0.005% Eye Drop] 1 drop OP BID 06/07/20 Lidocaine 4% Patch [Lidoderm 5% Patch*] 1 patch TOP PRN 06/07/20 Lisinopril [Zestril] 10 mg PO DAILY 06/07/20 Metformin HCl [Glucophage*] 500 mg PO DAILY 06/07/20 Sildenafil Citrate 100 mg PO DAILY 06/07/20 Amox/Clavulanate [Augmentin 875-125 Tab] 1 each PO BID #14 tab 06/09/20 Furosemide [Lasix] 40 mg PO BIDL #60 tab 06/09/20 New Medications: Amox/Clavulanate [Augmentin 875-125 Tab] 1 each PO BID #14 tab Furosemide [Lasix] 40 mg PO BIDL #60 tab Diet: ADA Activity: Ad enmanuel Followup: Henry Palacios [Primary Care Provider] - 1 Week Vinayak Graves DO [ACTIVE - CAN ADMIT] - 1-2 Weeks Time spent managing pt's care (in minutes): 41
[2020-06-09 14:17] VITALS: BP 140/62; TEMP 97.7
--- NOTE | 2020-06-09 20:10 | P.PN ---
Date of Service: 06/09/20 Vital Signs Temp Pulse Resp BP Pulse Ox 97.7 F 83 18 140/62 96 06/09/20 12:00 06/09/20 12:00 06/09/20 12:00 06/09/20 12:00 06/09/20 12:00 Microbiology Results 06/07/20 00:50 Blood - Blood Aerobic Blood Culture - Preliminary No growth in 24 hours. 06/07/20 00:50 Blood - Blood Anaerobic Blood Culture - Preliminary No growth in 24 hours. 06/07/20 00:54 Blood - Blood Aerobic Blood Culture - Preliminary No growth in 24 hours. 06/07/20 00:54 Blood - Blood Anaerobic Blood Culture - Preliminary No growth in 24 hours. Assessment/ Plan: Nephrology No acute cardiac or pulmonary complaints. No CP or SOB. Feeling better with improved edema. No acute events overnight. Vitals, medications, blood work and imaging reviewed in the chart. NAD. MMM. Neck supple. CTA. RRR. Soft Abd. No C/C/E. No rash. AAO. Normal Speech. EXAM DESCRIPTION: US - Renal Ultrasound-Complete - 06/07/2020 8:22 pm CLINICAL HISTORY: Acute renal insufficiency COMPARISON: None FINDINGS: The right kidney measures cm with a normal echotexture. The left kidney measures cm with a normal echotexture. A 2.4 centimeter hypoechoic mass. Couple smaller cysts Hydronephrosis is not seen. The bladder is distended. IMPRESSION: 2.4 centimeter hypoechoic mass left kidney probably a benign c omplex cyst. Follow up ultrasound in 3 months recommended to assess stability A/P: Continue the current POC and Medications other than the changes listed. AM Labs PRN. Recommend daily weight. Please see the orders for complete details. DEBI likely CRS CKD III -No NSAIDs -Continue Lasix -Discontinue fluid restriction Left renal mass 2.4cm likely benign cyst -Obtain previous CT scan Hypocalcemia -Continue Vitamin D3 HTN with CKD/ CHF -Continue Lisinopril Diastolic CHF, A/C -Continue Lasix IV BID DM II with CKD -Continue Lantus -Continue Metformin Anemia in chronic illness -Monitor H&H LLE Cellulitis -Continue Cefepime and Vancomycin -Monitor Vanco level Case reviewed with Dr. Jaime
== END 2020-06-09 16:30 | disposition home or self-care (01) | DRG 602 ==
LOC: ER 19:39 → 2ND 06-07 01:53 → UNDODISIN 06-09 14:41
PROVIDERS: ADMIT Hospitalist; ATTEND Internal Medicine
DX: L03.116 Cellulitis of left lower limb (principal); I50.33 Acute on chronic diastolic (congestive) heart failure; I13.0 Hypertensive heart and chronic kidney disease with heart failure and stage 1 through stage 4 chronic kidney disease, or unspecified chronic kidney disease; N17.9 Acute kidney failure, unspecified; N18.30 Chronic kidney disease, stage 3 unspecified; E11.22 Type 2 diabetes mellitus with diabetic chronic kidney disease; I89.0 Lymphedema, not elsewhere classified; E83.51 Hypocalcemia; D63.8 Anemia in other chronic diseases classified elsewhere; E78.5 Hyperlipidemia, unspecified; Z91.19 Patient's noncompliance with other medical treatment and regimen; Z85.46 Personal history of malignant neoplasm of prostate; Z79.4 Long term (current) use of insulin; Z79.899 Other long term (current) drug therapy; Z20.822 Contact with and (suspected) exposure to COVID-19
CPT/HCPCS: 36415; 71045; 76770; 80048; 80053; 80061; 80069; 80076; 80202; 81003; 82947; 83735; 83880; 84145; 84439; 84443; 84484; 84550; 85025; 85610; 87040; 93005; 93306; 93970; 96365; 96367; 96375; 99285; J0692; J1650; J1815; J1940; J3370; J7040; J7050; U0003